=== PATIENT | female | born 1990 | race Caucasian/White ===

== ENCOUNTER 2018-03-11 08:04 | Inpatient (IN) | payer MEDICAID, OTHER ==
[2018-03-11] MEDS ORDERED: OXYTOCIN 30 UNITS/LR 500 ML IV (08:30)
[2018-03-11] MEDS ORDERED: LIDOCAINE 1% (MPF) 30 ML INJ INJ (08:30)
[2018-03-11] MEDS ORDERED: BUTORPHANOL 2 MG INJ IV (08:30)
[2018-03-11] MEDS: LACTATED RINGER'S 1,000 ML IV* ×2 (08:44→09:16)
[2018-03-11 08:51] LABS: ADD MAN DIFF? NO
[2018-03-11 08:53] LABS: WHITE BLOOD COUNT 10.2 10^3/ul (4.8-10.8)
[2018-03-11 08:53] LABS: BASOPHILS % 0.3 % (0.0-2.0); EOSINOPHILS % 0.4 % (0.0-7.0); HEMATOCRIT 37.7 % (37.0-47.0); HEMOGLOBIN 13.3 g/dl (12.0-16.0); LYMPHOCYTES # 1.9 10^3/ul (0.8-2.9); LYMPHOCYTES % 18.6 % (15.0-51.0); MEAN CORPUSCULAR HEMOGLOBIN 31.8 pg (29.0-33.0); MEAN CORPUSCULAR HGB CONC 35.3 g/dl (32.0-37.0); MEAN CORPUSCULAR VOLUME 90.2 fl (82.0-101.0); MEAN PLATELET VOLUME 12.4 fl (7.4-10.4); MONOCYTE # 0.4 10^3/ul (0.3-0.9); MONOCYTES % 4.1 % (0.0-11.0); NEUTROPHIL # 7.8 10^3/ul (1.6-7.5); NEUTROPHILS % 76.2 % (39.0-77.0); PLATELET COUNT 158 10^3/UL (140-415); RED BLOOD COUNT 4.18 10^6/ul (4.20-5.40); RED CELL DISTRIBUTION WIDTH 13.2 % (11.5-14.5)
[2018-03-11 09:12] LABS: PROTIME 12.2 Sec (11.9-14.9)
[2018-03-11 09:13] LABS: PARTIAL THROMBOPLASTIN TIME 25.8 Sec (25.0-35.0)
[2018-03-11] MEDS: AMPICILLIN 2 GM/NS (PMX) 100 ML IV (09:17)
[2018-03-11] MEDS ORDERED: FENTAnyl 2MCG/ML-ROPIV 0.2% 100 ML (09:54)
[2018-03-11] MEDS ORDERED: AMPICILLIN 1 GM/NS (PMX) 50 ML IV (12:30)
[2018-03-11] MEDS: OXYTOCIN 30 UNITS/LR 500 ML IV ×5 (12:47→17:42)
[2018-03-11] MEDS: MISOPROSTOL 200 MCG TAB PR (14:12)
[2018-03-11] MEDS ORDERED: KETOROLAC 30 MG INJ IV (14:30)
[2018-03-11] MEDS ORDERED: HYDROmorphONE 0.5 MG/0.5 ML SYG IV ×2 (14:30)
[2018-03-11] MEDS ORDERED: DIPHENHYDRAMINE 50 MG INJ IV (14:30)
[2018-03-11] MEDS ORDERED: NALOXONE (0.4 MG/ML) INJ IV (14:30)
[2018-03-11] MEDS ORDERED: FENTAnyl 2MCG/ML-ROPIV 0.2% 100 ML BAG EPI (14:30)
[2018-03-11] MEDS ORDERED: ONDANSETRON 4 MG INJ IV ×2 (14:30→16:30)
[2018-03-11] MEDS: METHYLERGONOVINE 0.2 MG INJ IM (14:59)
[2018-03-11] MEDS: CARBOPROST 250 MCG INJ IM (15:29)
[2018-03-11 16:09] LABS: ADD MAN DIFF? NO
[2018-03-11 16:10] LABS: BASOPHILS % 0.3 % (0.0-2.0); EOSINOPHILS % 0.1 % (0.0-7.0); HEMATOCRIT 32.9 % (37.0-47.0); HEMOGLOBIN 11.7 g/dl (12.0-16.0); LYMPHOCYTES # 1.7 10^3/ul (0.8-2.9); LYMPHOCYTES % 11.1 % (15.0-51.0); MEAN CORPUSCULAR HEMOGLOBIN 32.1 pg (29.0-33.0); MEAN CORPUSCULAR HGB CONC 35.6 g/dl (32.0-37.0); MEAN CORPUSCULAR VOLUME 90.1 fl (82.0-101.0); MONOCYTE # 0.4 10^3/ul (0.3-0.9); MONOCYTES % 2.7 % (0.0-11.0); NEUTROPHIL # 12.8 10^3/ul (1.6-7.5); NEUTROPHILS % 85.5 % (39.0-77.0); PLATELET COUNT 149 10^3/UL (140-415); RED BLOOD COUNT 3.65 10^6/ul (4.20-5.40); RED CELL DISTRIBUTION WIDTH 12.9 % (11.5-14.5)
[2018-03-11] MEDS ORDERED: MISOPROSTOL 200 MCG TAB PR (16:30)
[2018-03-11] MEDS ORDERED: WITCH HAZEL/GLYCERIN PAD PR (16:30)
[2018-03-11] MEDS ORDERED: CEFAZOLIN 1 GM/50 ML (PMX) 50 ML IV (16:30)
[2018-03-11] MEDS ORDERED: METHYLERGONOVINE 0.2 MG INJ IM (16:30)
[2018-03-11] MEDS ORDERED: DIPHENHYDRAMINE 25 MG CAP PO (16:30)
[2018-03-11] MEDS ORDERED: ZOLPIDEM 5 MG TAB PO (16:30)
[2018-03-11] MEDS ORDERED: NACL 0.9% 3 ML SYG IV (16:30)
[2018-03-11] MEDS ORDERED: LANOLIN 7 GM TUBE TOP (16:30)
[2018-03-11] MEDS ORDERED: CARBOPROST 250 MCG INJ IM (16:30)
[2018-03-11 17:06] LABS: HEPATITIS B SURFACE ANTIGEN NEGATIVE (NEGATIVE)
[2018-03-11 17:29] LABS: HIV 1&2 ANTIBODY NEGATIVE (NEGATIVE)
[2018-03-11] MEDS: MINERAL OIL LIGHT 10 ML VIAL TOP (21:00)
[2018-03-11] MEDS: CEFAZOLIN 2 GM/50 ML (PMX) 50 ML IVPB ×2 (21:00→23:40)
[2018-03-11] MEDS: SENNA/DOCUSATE NA (8.6MG/50MG) TAB PO (22:30)
[2018-03-11] MEDS: HYDROCODONE/APAP (5/325) TAB PO (22:30)
[2018-03-11] MEDS: ACETAMINOPHEN 325 MG TAB PO (23:40)
[2018-03-11] MEDS: IBUPROFEN 600 MG TAB PO (23:43)
[2018-03-12] MEDS: IBUPROFEN 600 MG TAB PO ×4 (05:37→23:45)
[2018-03-12] MEDS: OXYTOCIN 30 UNITS/LR 500 ML IV (05:40)
[2018-03-12] MEDS: CEFAZOLIN 2 GM/50 ML (PMX) 50 ML IVPB ×2 (07:59→15:44)
[2018-03-12 08:48] LABS: ADD MAN DIFF? NO
[2018-03-12] MEDS: SENNA/DOCUSATE NA (8.6MG/50MG) TAB PO ×2 (08:51→21:04)
[2018-03-12 08:59] LABS: BASOPHILS % 0.1 % (0.0-2.0); EOSINOPHILS % 0.5 % (0.0-7.0); HEMATOCRIT 23.4 % (37.0-47.0); HEMOGLOBIN 8.4 g/dl (12.0-16.0); LYMPHOCYTES # 1.6 10^3/ul (0.8-2.9); LYMPHOCYTES % 18.5 % (15.0-51.0); MEAN CORPUSCULAR HEMOGLOBIN 33.1 pg (29.0-33.0); MEAN CORPUSCULAR HGB CONC 35.9 g/dl (32.0-37.0); MEAN CORPUSCULAR VOLUME 92.1 fl (82.0-101.0); MEAN PLATELET VOLUME 12.6 fl (7.4-10.4); MONOCYTE # 0.5 10^3/ul (0.3-0.9); MONOCYTES % 5.1 % (0.0-11.0); NEUTROPHIL # 6.7 10^3/ul (1.6-7.5); NEUTROPHILS % 75.3 % (39.0-77.0); PLATELET COUNT 117 10^3/UL (140-415); RED BLOOD COUNT 2.54 10^6/ul (4.20-5.40); RED CELL DISTRIBUTION WIDTH 13.3 % (11.5-14.5)
[2018-03-12 08:59] LABS: WHITE BLOOD COUNT 8.9 10^3/ul (4.8-10.8)
[2018-03-12 21:56] LABS: RAPID PLASMA REAGIN NONREACTIVE (NR)
[2018-03-13] MEDS: IBUPROFEN 600 MG TAB PO ×2 (05:35→12:27)
[2018-03-13] MEDS: SENNA/DOCUSATE NA (8.6MG/50MG) TAB PO (08:49)
[2018-03-13] MEDS: VARICELLA VACCINE LIVE/PF 1,350 UNIT/0.5 ML ML SC* (09:00)
[2018-03-13] MEDS: DIPHTH/TET/ACEL PERTUSS (ADULT) 0.5 ML VIAL IM* (09:00)
[2018-03-13] MEDS: MEASLES,MUMPS,RUBELLA VACCINE INJ SC* (09:00)
[2018-03-14 10:46] LABS: RUBELLA ANTIBODY - IGG 8.36 index
[2018-03-17 13:02] LABS: RUBELLA ANTIBODY - IGM <20.00 AU/mL
== END 2018-03-13 16:26 | disposition home or self-care (01) | DRG 768 ==
LOC: OBT 08:04 → L-D 08:05 → OBT 08:25 → L-D 08:09 → PP1 21:03
PROVIDERS: Obstetrics & Gynecology
PROC: 10E0XZZ Delivery of Products of Conception, External Approach (ICD-10-PCS; principal; 2018-03-11)
PROC: 0W3R7ZZ Control Bleeding in Genitourinary Tract, Via Natural or Artificial Opening (ICD-10-PCS; 2018-03-11)
PROC: 0UC97ZZ Extirpation of Matter from Uterus, Via Natural or Artificial Opening (ICD-10-PCS; 2018-03-11)
DX: O69.81X0 Labor and delivery complicated by cord around neck, without compression, not applicable or unspecified (principal); O72.1 Other immediate postpartum hemorrhage; D64.9 Anemia, unspecified; Z3A.37 37 weeks gestation of pregnancy; Z37.0 Single live birth
CPT/HCPCS: 62319; 85025; 85610; 85730; 86592; 86703; 86762; 86850; 86900; 86901; 87340